=== PATIENT | female | born 1980 | race Caucasian/White ===

== ENCOUNTER → 2021-10-09 08:58 | Outpatient (BNVA) | payer OTHER, SELFPAY | PROVIDERS: PCP Internal Medicine; Visit Provider Nurse Practitioner Family | DX: G43.709 Chronic migraine without aura, not intractable, without status migrainosus (principal); M54.2 Cervicalgia | CPT/HCPCS: 99212 ==

== ENCOUNTER → 2021-10-17 12:34 | Outpatient (BNVA) | payer OTHER, SELFPAY | PROVIDERS: PCP Internal Medicine; Visit Provider Psychiatry & Neurology Neurology | DX: G43.709 Chronic migraine without aura, not intractable, without status migrainosus (principal); M54.2 Cervicalgia | CPT/HCPCS: 99212 ==

== ENCOUNTER 2024-12-15 14:22 | Emergency (ER) | payer OTHER, SELFPAY ==
--- NOTE | ~2024-12-15 | XR_ITS ---
EXAMINATION: XR CHEST 2 VIEWS HISTORY: Right rib pain. pleurisy COMPARISON: Comparison is made with the prior examination dated 01/19/2018. FINDINGS: PA and lateral views of the chest are submitted. The lungs are expanded and clear. There is no pleural effusion, pneumothorax, or pulmonary vascular congestion. The heart is normal in size. The bones are intact. XR/XR chest 2V IMPRESSION: No acute cardiopulmonary abnormality. Electronically signed by: Ron Cage MD 12/15/2024 03:01 PM EDT
[2024-12-15 14:34] VITALS: BP 110/75; PULSE 66; RESP 16; TEMP 36.1; O2SAT 100; BMI 32.9
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
--- NOTE | 2024-12-15 14:42 | ECG_ITS ---
Test Reason : chest pain Blood Pressure : */* mmHG Vent. Rate : 60 BPM Atrial Rate : 60 BPM P-R Int : 150 ms QRS Dur : 82 ms QT Int : 440 ms P-R-T Axes : 17 75 36 degrees QTcB Int : 440 ms Normal sinus rhythm Normal ECG When compared with ECG of 19-Jan-2018 20:55, No significant change was found Referred By: Zane Enriquez Electronically Signed By: CHAPITO URIBE MD
[2024-12-15 15:24] LABS: MANUAL DIFF FLAG NO
[2024-12-15 15:26] LABS: Hematocrit 34.8 % (37.0-47.0); Hemoglobin 11.1 g/dl (12.0-16.0); Imm Gran Abs Auto 0.01 X10*3/uL (0.00-0.03); Imm Gran Pct Auto 0.2 % (0.0-0.4); Lymphocytes Absolute Auto 1.8 X10*3/uL (1.2-4.9); Mean Corpuscular HGB Conc 31.9 g/dl (31.0-35.0); Mean Corpuscular Hemoglobin 28.2 pg (27.0-33.0); Mean Corpuscular Volume 88.5 fL (80.0-98.0); NRBC Abs Auto 0.000 X10*3/uL (0.0-0.012); NRBC Pct Auto 0.0 /100WBC (0.0-0.2); Platelet Count 202 X10*3/uL (160-400); Red Blood Count 3.93 X10*6/uL (4.20-5.50); White Blood Count 5.2 X10*3/uL (4.8-10.8)
[2024-12-15 15:31] LABS: INTERNATIONAL NORM RATIO 1.0 (0.9-1.1); Prothrombin Time 11.4 SEC (10.9-12.4)
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
[2024-12-15 15:34] LABS: Partial Thromboplastin Time 27.6 SEC (26.0-36.8)
[2024-12-15 15:53] LABS: Alanine Aminotransferase 14 U/L (0-31); Albumin Level 3.9 g/dL (3.5-5.0); Alkaline Phosphatase 61 U/L (39-117); Anion Gap 9 (12-20); Aspartate Amino Transferase 21 U/L (5-31); Blood Urea Nitrogen 10 mg/dL (9-16); Calcium 8.5 mg/dL (8.4-10.2); Carbon Dioxide 28 mmol/L (22-29); Chloride 104 mmol/L (96-108); Creatinine Clr Calc Pharmacy 124.0; Estimated Glomerular Filt Rate > 60; Potassium 4.1 mmol/L (3.3-5.1); Sodium 137 mmol/L (135-145); Total Protein 6.8 g/dL (6.5-8.0)
[2024-12-15 16:01] LABS: Troponin-I High Sensitivity 4.2 ng/L (<3.5-17.0)
--- NOTE | 2024-12-15 16:22 | PC.NURSE ---
pt medicated per AUG for 03/24 right sided chest wall pain
[2024-12-15 16:52] VITALS: BP 156/81; PULSE 67; RESP 16; TEMP 36.3; O2SAT 99
[2024-12-15 16:57] VITALS: BP 156/81; PULSE 67; RESP 16; TEMP 36.3; O2SAT 99
== END 2024-12-15 16:57 | disposition home or self-care (01) ==
PROVIDERS: Physician Assistant; Emergency Provider Emergency Medicine Emergency Medical Services; PCP Internal Medicine
DX: S20.211A Contusion of right front wall of thorax, initial encounter (principal); R07.89 Other chest pain; X58.XXXA Exposure to other specified factors, initial encounter; Y93.9 Activity, unspecified; Y92.9 Unspecified place or not applicable; Y99.8 Other external cause status; Z79.899 Other long term (current) drug therapy
CPT/HCPCS: 36415; 71046; 80053; 84484; 85025; 85610; 85730; 93005; 96372; 99284; 99285; J1885

== ENCOUNTER → 2024-12-15 14:42 | Outpatient (BNV) | payer OTHER, SELFPAY | PROVIDERS: Emergency Provider Emergency Medicine Emergency Medical Services; PCP Internal Medicine; Visit Provider Internal Medicine Cardiovascular Disease | DX: R07.9 Chest pain, unspecified (principal) | CPT/HCPCS: 93010 ==

== ENCOUNTER → 2024-12-15 14:42 | Outpatient (BNV) | payer OTHER, SELFPAY | PROVIDERS: Emergency Provider Emergency Medicine Emergency Medical Services; PCP Internal Medicine; Visit Provider Radiology Diagnostic Radiology | DX: R07.81 Pleurodynia (principal); R09.1 Pleurisy | CPT/HCPCS: 71046 ==